=== PATIENT | female | born 1990 | race Hispanic/Latino ===

== ENCOUNTER 2017-12-14 03:55 | Inpatient (IN) | payer OTHER ==
--- NOTE | 2017-12-14 05:12 | ED PDOC ---
"HPI: Headache <Buster Elkins - Last Filed: 12/14/17 19:31> Chief Complaint (Provider): Headache History Per: Patient History/Exam Limitations: no limitations Onset/Duration Of Symptoms: Days (1), Persistent Additional Complaint(s): 27 yo F reports 4 day h/o constant pain to right occipital scalp radiating to the right side of her head. She states pain is persistent, unrelieved with PO advil, prompting concern and ED visit today, reports pain is worse when turning her head to the opposite direction. She denies experiencing any similar symptoms in the past. Otherwise: (-) thunderclap headache, (-) worse headache of life, (-) dizziness, (-) recent illness, (-) rash, (-) nausea, (-) vomiting, (-) photophobia, (-) URI symptoms, (-) fever, (-) trauma, (-) recent travel, (- ) focal weakness or numbness. <Natalie Malone PA-C - Last Filed: 12/14/17 20:48> Time Seen by Provider: 12/14/17 04:14 Chief Complaint (Nursing): Headache NIHSS Stroke Scale - Date/Time Evaluation Performed Date Performed: 12/14/17 Time Performed: 07:00 When Was NIHSS Performed: Baseline - How Severe is the Stroke Level of Consciousness: 0=Alert LOC to Questions: 0=Both comments correct LOC to commands: 0=Obeys both correctly Best Gaze: 0=Normal Visual: 0=No visual loss Facial: 0=Normal Motor Arm - Left: 0=No drift Motor Arm - Right: 0=No drift Motor Leg - Left: 0=No drift Motor Leg - Right: 0=No drift Limb Ataxia: 0=Absent Sensory: 0=Normal Best Language: 0=No aphasia Dysarthia: 0=Normal articulation Extinction & Inattention (Neglect): 0=Normal, no object Score: 0 <Buster Elkins - Last Filed: 12/14/17 19:31> Past Medical History Vital Signs: Last Vital Signs Temp 98.1 F 12/14/17 04:12 Pulse 74 12/14/17 04:12 Resp 16 12/14/17 04:12 BP 129/79 12/14/17 04:12 Pulse Ox 98 12/14/17 06:00 <Buster Elkins - Last Filed: 12/14/17 19:31> Reviewed: Historical Data, Nursing Documentation, Vital Signs Vital Signs: Last Vital Signs Temp 98.1 F 12/14/17 04:12 Pulse 74 12/14/17 04:12 Resp 16 12/14/17 04:12 BP 129/79 12/14/17 04:12 Pulse Ox 98 12/14/17 04:12 - Medical History PMH: No Chronic Diseases - Surgical History Surgical History: Tonsillectomy - Family History Family History: States: Unknown Family Hx - Social History Current smoker - smoking cessation education provided: No Alcohol: Social Drugs: Denies <Natalie Malone PA-C - Last Filed: 12/14/17 20:48> - Home Medications Home Medications: Ambulatory Orders Medication Instructions Recorded Norethindrone-E.estradiol-Iron 1 tab PO DAILY 12/14/17 [Microgestin Fe 1-20 Tablet] - Allergies Allergies/Adverse Reactions: Allergies Allergy/AdvReac Type Severity Reaction Status Date / Time No Known Allergies Allergy Verified 12/14/17 04:12 Review of Systems ROS Statement: Except As Marked, All Systems Reviewed And Found Negative Neurological: Positive for: Headache (Right sided), Other (Pain to right occipital scalp) <Natalie Malone PA-C - Last Filed: 12/14/17 20:48> Physical Exam - Physical Exam Comments: GENERAL APPEARANCE: Patient is awake, alert, oriented x 3, in mild distress. SKIN: Warm, dry; (-) cyanosis; (-) rash. HEAD: (-) scalp swelling or tenderness, (-) temporal artery tenderness. EYES: (-) conjunctival pallor, (-) scleral icterus. ENMT: (-) sinus tenderness; mucous membranes are moist. NECK: (-) tenderness, (-) stiffness, (-) meningismus, (-) lymphadenopathy. CHEST AND RESPIRATORY: (-) rales, (-) rhonchi, (-) wheezes; breath sounds equal bilaterally. HEART AND CARDIOVASCULAR: (-) irregularity; (-) murmur, (-) gallop. ABDOMEN AND GI: Soft; (-) tenderness. EXTREMITIES: (-) deformity. NEURO AND PSYCH: Mental status as above. data mining analyst: Pupils equal reactive; EOMI; (- ) facial asymmetry; tongue and uvula midline. Strength and DTRs symmetric. <Natalie Malone PA-C - Last Filed: 12/14/17 20:48> - Laboratory Results Result Diagrams: 12/14/17 07:08 12/14/17 07:08 <Buster Elkins - Last Filed: 12/14/17 19:31> - Laboratory Results Result Diagrams: 12/14/17 07:08 12/14/17 07:08 - ECG O2 Sat by Pulse Oximetry: 98 (RA) Pulse Ox Interpretation: Normal <Natalie Malone PA-C - Last Filed: 12/14/17 20:48> Medical Decision Making Medical Decision MakinAM Addendum created by Shanelle Su MD on 12/14/2017 6:44 AM Eastern Time ([place] & [place]) Critical results: THIS REPORT CONTAINS FINDINGS THAT MAY BE CRITICAL TO PATIENT CARE. The findings were verbally communicated via telephone conference with Dr. Elkins at 6:43 AM EDT on 12/14/2017. The findings were acknowledged and understood. Initial Report created on 12/14/2017 6:43 AM Eastern Time ([place] & [place]) EXAM: CT Head Without Intravenous Contrast CLINICAL HISTORY: The patient is a 27 years female; Pain; Headache Examination order is timed 12/14 5:03 AM. TECHNIQUE: Axial computed tomography images of the head/brain without intravenous contrast. All CT scans at this facility use at least one of these dose optimization techniques: automated exposure control; mA and/or kV adjustment per patient size (includes targeted exams where dose is matched to clinical indication); or iterative reconstruction. Coronal and Sagittal reformatted images were obtained from the axial data set. COMPARISON: No relevant prior studies available. FINDINGS: BRAIN: See below. VENTRICLES: Unremarkable as visualized. No ventriculomegaly. BONES/JOINTS: No acute fracture. SOFT TISSUES: Unremarkable as visualized. VASCULATURE: There is heterogeneous increased attenuation in the transverse sinus and likely proximal aspect of the sigmoid sinus which is very concerning for sinus thrombosis. There is no AGUSTINA [place] | Preliminary Radiology Report PARKING OFFICER (QA) DISCREPANCY? If there is a discrepancy between the preliminary and final interpretation, please notify [facility] via [email or web address]. If you do not have access to our QA portal, call our QA team at [phone] CONFIDENTIALITY STATEMENT This report is intended only for the use of the referring physician, and only in accordance with law, If you received this in error, call [phone] Page 2 of 2 evidence of intracranial hemorrhage. Comer-white differentiation is intact. There is no mass effect or midline shift. There is no extra-axial fluid collection or hemorrhage. SINUSES: Unremarkable as visualized. No acute sinusitis. MASTOID AIR CELLS: The mastoid IMPRESSION: Findings concerning for right-sided dural sinus thrombosis. Recommend CTV. Thank you for allowing us to participate in the care of your patient. Dictated and Authenticated by: Shanelle Su MD 12/14/2017 6:43 AM Eastern Time ([place] & [place]) Patient was re-evaluated at the bedside after the CT results came back, I informed patient of the results. I did a thorough neuro exam that was negative. NIH Stroke scale of 0. I spoke with DR. Cabrera who recommends MRA/MRV and Anticoagulation with plavix. Dr. Paulson was called and agrees with medical management, no NS intervention necessary. Case discussed with Dr. Campbell. <Buster Elkins - Last Filed: 12/14/17 19:31> Medical Decision Making: Time: 0503 Initial impression: Tension headache. Initital plan: --Uhcg --CT Head w/o Contrast --Reglan 10 mg Po Uhcg (-). 0600 CT head results pending, currently being read by the radiologist. Case d/w Dr. Elkins. Scribe Attestation: Documented by Tiera Younger, acting as a scribe for Natalie Malone PA-C. Provider Scribe Attestation: All medical record entries made by the Scribe were at my direction and personally dictated by me. I have reviewed the chart and agree that the record accurately reflects my personal performance of the history, physical exam, medical decision making, and the department course for this patient. I have also personally directed, reviewed, and agree with the discharge instructions and disposition. <Natalie Malone PA-C - Last Filed: 12/14/17 20:48> Disposition - Patient ED Disposition Is Patient to be Admitted: Yes Counseled Patient/Family Regarding: Studies Performed, Diagnosis - Disposition Disposition Time: 07:00 <Buster Elkins - Last Filed: 12/14/17 19:31> - Patient ED Disposition Is Patient to be Admitted: No Counseled Patient/Family Regarding: Studies Performed, Diagnosis, Need For Followup - Disposition Disposition: Routine/Home <Natalie Malone PA-C - Last Filed: 12/14/17 20:48> - Clinical Impression Clinical Impression: Dural venous sinus thrombosis - Disposition Condition: GUARDED - PA / STORAGE GARAGE ATTENDANT / Resident Statement / has reviewed & agrees with the documentation as recorded. / has examined the patient and agrees with the treatment plan. <Natalie Malone PA-C - Last Filed: 12/14/17 20:48>"
[2017-12-14 07:44] LABS: BASO % 0.6 % (0.0-2.0); EOS % 0.5 % (0.0-4.0); HEMOGLOBIN 13.3 g/dL (12.0-16.0); LYMPH # 2.3 K/uL (1.0-4.3); LYMPH % 30.5 % (20.0-40.0); MEAN CELL VOLUME 92.1 fl (81.0-99.0); MEAN CORPUSCULAR HGB CONC 33.6 g/dL (33.0-37.0); MEAN PLATELET VOLUME 7.7 fl (7.2-11.7); MONO # 0.7 K/uL (0.0-0.8); NEUT # 4.5 K/uL (1.8-7.0); NEUT % 59.4 % (50.0-75.0); NRBC % 0.1 % (0.0-0.0); RBC 4.3 Mil/uL (3.80-5.20); RED CELL DISTRIBUTION WIDTH 13.3 % (11.5-14.5); WHITE BLOOD COUNT 7.5 K/uL (4.8-10.8)
[2017-12-14 07:48] LABS: SQUAMOUS EPITHIAL 2 /hpf (0-5); URINE BACTERIA OCC (<OCC); URINE BILIRUBIN NEGATIVE (NEGATIVE); URINE BLOOD NEGATIVE (NEGATIVE); URINE CLARITY SLIGHTY-CLOUDY (Clear); URINE COLOR YELLOW (YELLOW); URINE GLUCOSE (UA) NEG (Normal); URINE LEUKOCYTE ESTERASE NEG Leu/uL (Negative); URINE PROTEIN NEGATIVE (NEGATIVE); URINE UROBILINOGEN 0.2-1.0 mg/dL (0.2-1.0)
[2017-12-14] MEDS ORDERED: Sodium Chloride 0.9% 50 ML IV ONE (07:54)
[2017-12-14] MEDS ORDERED: Iohexol 300 100 ML IJ ONE (07:54)
[2017-12-14 07:57] LABS: INR 0.9 (0.9-1.2); PARTIAL THROMBOPLASTIN TIME 27.4 Seconds (25.6-37.1); PROTHROMBIN TIME 9.8 Seconds (9.8-13.1)
[2017-12-14 07:58] LABS: BLOOD UREA NITROGEN 15 mg/dl (7-17); CALCIUM 9.8 mg/dL (8.4-10.2); GFR AFRICAN-AMERICAN > 60; GFR NON-AFRICAN AMERICAN > 60
[2017-12-14] MEDS ORDERED: Oxycodone/Acetaminophen 5/325 mg Tab PO PRN (08:21)
[2017-12-14] MEDS ORDERED: Oxycodone/Acetaminophen 5/325 mg Tab ONE (08:35)
[2017-12-14] MEDS: Oxycodone/Acetaminophen 5/325 mg Tab PO PRN (08:45)
--- NOTE | 2017-12-14 08:52 | CP.PCM.HP ---
History of Present Illness - History of Present Illness History of Present Illness: Patient seen and examined at bedside with Dr. Campbell. 27 yr old F presented to ED with complaint of constant severe headache x 4 days. Denies any significant PMHx. Pain is located on the right side of her head from occipital area radiating temporal area. Pain is exacerbated by turning her head towards the left. Pain is not alleviated by anything, she tried Advil. Denies nausea, vomiting, fevers, chills, SOB, photophobia, one sided weakness or numbness, dysuria or hematuria. PMHx: denies SurgHx: tonsillectomy FMHx:noncontributory SocHx: denies tobacco/Etoh or drugs Medications: Norethindron-estradiol Allergies: NKDA ED course: vitals stable -CBC, coags, CMP and urinalysis within normal limits -CT head without contrast: findings concerning for right sided dural sinus thrombosis. Recommend CTV -MRA head with contrast and MRV head without contrast ordered -ED treatment: Plavix 300mg PO once, Reglan 10mg PO once Present on Admission - Present on Admission Any Indicators Present on Admission: No History of DVT/PE: No History of Uncontrolled Diabetes: No Urinary Catheter: No Decubitus Ulcer Present: No History Surgical Site Infection Following: None Review of Systems - EENT Eyes: absent: Change in Vision Ears: absent: Disequilibrium, Dizziness Nose/Mouth/Throat: absent: Sinus Pain, Sinus Pressure, Sore Throat - Cardiovascular Cardiovascular: absent: Chest Pain, Dyspnea - Respiratory Respiratory: absent: Cough, Dyspnea, Hemoptysis - Gastrointestinal Gastrointestinal: absent: Diarrhea, Nausea, Vomiting - Genitourinary Genitourinary: absent: Difficulty Urinating, Dysuria - Musculoskeletal Musculoskeletal: absent: Arthralgias, Neck Pain - Neurological Neurological: Headaches (constant-right sided). absent: Confusion, Dizziness, Focal Weakness - Psychiatric Psychiatric: absent: Anxiety, Suicidal Ideation - Endocrine Endocrine: absent: Polydipsia, Polyphagia, Polyuria - Hematologic/Lymphatic Hematologic: absent: Easy Bleeding, Easy Bruising Past Patient History - Past Social History Alcohol: Social Drugs: Denies - PSYCHIATRIC Hx Substance Use: No - SURGICAL HISTORY Hx Tonsillectomy: Yes Meds Allergies/Adverse Reactions: Allergies Allergy/AdvReac Type Severity Reaction Status Date / Time No Known Allergies Allergy Verified 12/14/17 04:12 Physical Exam - Constitutional Appears: No Acute Distress - Head Exam Head Exam: ATRAUMATIC, NORMOCEPHALIC - Eye Exam Eye Exam: EOMI, PERRL - ENT Exam ENT Exam: Mucous Membranes Moist - Neck Exam Neck exam: Positive for: Full Rom. Negative for: Lymphadenopathy, Meningismus, Tenderness - Respiratory Exam Respiratory Exam: Clear to Auscultation Bilateral, NORMAL BREATHING PATTERN - Cardiovascular Exam Cardiovascular Exam: REGULAR RHYTHM, +S1, +S2 - GI/Abdominal Exam GI & Abdominal Exam: Normal Bowel Sounds, Soft. absent: Tenderness - Extremities Exam Extremities exam: Positive for: full ROM. Negative for: calf tenderness, joint swelling, pedal edema - Neurological Exam Neurological exam: Alert, CN II-XII Intact, Oriented x3 - Psychiatric Exam Psychiatric exam: Normal Affect, Normal Mood - Skin Skin Exam: Dry, Normal Color, Warm Results - Vital Signs Recent Vital Signs: Last Vital Signs Temp 98.1 F 12/14/17 04:12 Pulse 74 12/14/17 07:14 Resp 16 12/14/17 07:14 BP 122/78 12/14/17 07:14 Pulse Ox 100 12/14/17 07:14 - Labs Result Diagrams: 12/14/17 07:08 12/14/17 07:08 Labs: Laboratory Results - last 24 hr 12/14/17 12/14/17 12/14/17 07:02 07:08 07:08 WBC 7.5 RBC 4.30 Hgb 13.3 Hct 39.6 MCV 92.1 MCH 31.0 MCHC 33.6 RDW 13.3 Plt Count 303 MPV 7.7 Neut % (Auto) 59.4 Lymph % (Auto) 30.5 [place] % (Auto) 9.0 Eos % (Auto) 0.5 Baso % (Auto) 0.6 Neut # (Auto) 4.5 Lymph # (Auto) 2.3 [place] # (Auto) 0.7 Eos # (Auto) 0.0 Baso # (Auto) 0.0 PT INR APTT Sodium 141 Potassium 4.4 Chloride 105 Carbon Dioxide 27 Anion Gap 13 BUN 15 Creatinine 0.6 L Est GFR ( Amer) > 60 Est GFR (Non-Af Amer) > 60 POC Glucose (mg/dL) 99 Random Glucose 99 Calcium 9.8 Urine Color Urine Clarity Urine pH Ur Specific [place] Urine Protein Urine Glucose (UA) Urine Ketones Urine Blood Urine Nitrate Urine Bilirubin Urine Urobilinogen Ur Leukocyte Esterase Urine RBC (Auto) Urine Microscopic WBC Ur Squamous Epith Cells Urine Bacteria BBK History Checked 12/14/17 12/14/17 12/14/17 07:08 07:09 08:00 WBC RBC Hgb Hct MCV MCH MCHC RDW Plt Count MPV Neut % (Auto) Lymph % (Auto) [place] % (Auto) Eos % (Auto) Baso % (Auto) Neut # (Auto) Lymph # (Auto) [place] # (Auto) Eos # (Auto) Baso # (Auto) PT 9.8 INR 0.9 APTT 27.4 Sodium Potassium Chloride Carbon Dioxide Anion Gap BUN Creatinine Est GFR ( Amer) Est GFR (Non-Af Amer) POC Glucose (mg/dL) Random Glucose Calcium Urine Color Yellow Urine Clarity Slighty-cloudy Urine pH 5.0 Ur Specific [place] 1.018 Urine Protein Negative Urine Glucose (UA) Neg Urine Ketones Negative Urine Blood Negative Urine Nitrate Negative Urine Bilirubin Negative Urine Urobilinogen 0.2-1.0 Ur Leukocyte Esterase Neg Urine RBC (Auto) 8 H Urine Microscopic WBC 3 Ur Squamous Epith Cells 2 Urine Bacteria Occ H BBK History Checked No verified bt Assessment & Plan - Assessment and Plan (Free Text) Assessment: 27 yr old F admitted for right sided dural sinus thrombosis. No other significant PMHx. Plan: -admit to telemetry -hold oral contraceptive medication -Neurology consult appreciated -regular diet -f/u hypercoagulable labs (antiphospholipid ab, antithrombin activity, factor V leiden, protein C activity, protein S activity, prothrombin gene) -pain management - Date & Time Date: 12/14/17 Time: 07:45
--- NOTE | 2017-12-14 09:04 | CT ---
PROCEDURE: CT HEAD WITHOUT CONTRAST. HISTORY: headache COMPARISON: None available. TECHNIQUE: Axial computed tomography images were obtained through the head/brain without intravenous contrast. Radiation dose: Total exam DLP = 851.41 mGy-cm. This CT exam was performed using one or more of the following dose reduction techniques: Automated exposure control, adjustment of the mA and/or kV according to patient size, and/or use of iterative reconstruction technique. FINDINGS: HEMORRHAGE: No intracranial hemorrhage. BRAIN: Increased hyper densities appreciated the region of the right transverse sinus suspicious for thrombosis. Consider follow-up CT of the brain with contrast. Remaining sinuses are normal in overall density. Good corticomedullary differentiation remains and no parenchymal edema is appreciated this time to suggest brain infarction. There is no mass effect or suspicious extra-axial fluid collection identified. Midline brain anatomy appears diffusely unremarkable. VENTRICLES: Unremarkable. No hydrocephalus. CALVARIUM: Unremarkable. PARANASAL SINUSES: Unremarkable as visualized. No significant inflammatory changes. MASTOID AIR CELLS: Unremarkable as visualized. No inflammatory changes. OTHER FINDINGS: None. IMPRESSION: Findings suspicious for right transverse sinus thrombosis as discussed above. Follow-up CT or MRI with contrast is advised. No CT evidence of acute or subacute brain infarction though MRI is more sensitive and should be considered. Concordant preliminary report from [facility], 12/14/2017.
--- NOTE | 2017-12-14 09:11 | CT ---
PROCEDURE: CT HEAD WITH CONTRAST HISTORY: thrombosis in dural sinus COMPARISON: Noncontrast head CT 12/14/2017 5:13 a.m.. TECHNIQUE: Axial computed tomography images were obtained through the head/brain with intravenous contrast. Contrast dose: Omnipaque 300, 40 cc Radiation dose: Total exam DLP = 901.02 mGy-cm. This CT exam was performed using one or more of the following dose reduction techniques: Automated exposure control, adjustment of the mA and/or kV according to patient size, and/or use of iterative reconstruction technique. FINDINGS: HEMORRHAGE: No intracranial hemorrhage. BRAIN: There is poor enhancement at the right transverse sinus extending into the sigmoid sinus compatible with dural sinus thrombosis, including the proximal right internal jugular vein. Remaining venous sinuses appear to enhance in normal fashion including superior inferior sagittal sinuses, left transverse and sigmoid sinuses as well as the straight sinus and vein of Jose M. Internal cerebral veins also enhance in a normal fashion. No suspicious parenchymal enhancement throughout the brain. VENTRICLES: Unremarkable. No hydrocephalus. CALVARIUM: Unremarkable. PARANASAL SINUSES: Unremarkable as visualized. No significant inflammatory changes. MASTOID AIR CELLS: Unremarkable as visualized. No mastoid effusion. OTHER FINDINGS: None. IMPRESSION: Findings positive for dural sinus thrombosis involving right transverse and sigmoid sinuses and proximal segment of the right internal jugular vein as well. No overt CT pattern of brain infarction at this time. MRI may be useful for confirmation if clinically warranted. No abnormal parenchymal enhancement throughout the brain. Findings discussed with Dr. Rocha with written down and read back verification, 12/14/2017 9:10 a.m..
--- NOTE | 2017-12-14 11:02 | MRI ---
PROCEDURE: Magnetic Resonance Angiography Brain HISTORY: intractable headache COMPARISON: None available. TECHNIQUE: 3D time of flight MR angiography of the intracranial arteries was performed. Rotating maximum intensity projection images were generated. FINDINGS: INTERNAL CAROTID ARTERIES: Unremarkable. The skull base, petrous, cavernous and supraclinoid segments are bilaterally widely patient. ANTERIOR CEREBRAL ARTERIES: Mildly hypoplastic but patent right A1 segment. Left A1 and A2 segments are widely patent. Smaller distal branches unremarkable, as visualized. MIDDLE CEREBRAL ARTERIES: Unremarkable. M1 and M2 segments are widely patent. Perisylvian branches grossly symmetric. POSTERIOR CIRCULATION: Basilar Artery: Unremarkable. Distal Vertebral Arteries: Mildly hypoplastic but patent distal left vertebral artery. Unremarkable right vertebral artery Posterior Cerebral Arteries: Unremarkable. Posterior Inferior Cerebellar Arteries: Unremarkable. ANEURYSM/ VASCULAR MALFORMATIONS: None. OTHER FINDINGS: None. IMPRESSION: No significant stenosis and no occlusion is seen in MR angiography of the brain. A couple of hypoplastic branches are identified as discussed above at the right A1 anterior cerebral and left distal vertebral arteries.
--- NOTE | 2017-12-14 11:12 | MRI ---
PROCEDURE: MR Venography of the Brain HISTORY: intractable headache COMPARISON: Head CT with contrast 12/14/2017. TECHNIQUE: 2D time of flight venography of the brain was performed. Rotating MIP images of the intracranial veins were generated. FINDINGS: SUPERFICIAL VEINS: Superior Sagittal Sinus: Patent. Inferior Sagittal Sinus:None seen, nonspecific sign as it is frequently not identified in MR venography. Transverse Sinuses: No signal identified at the right transverse or sigmoid sinuses suggesting occlusion. Sigmoid Sinuses:As above. DEEP VEINS: Internal Cerebral Veins: Patent. Vein of Jose M: Patent. Straight Sinus: Patent. IMPRESSION: Occlusional thrombosis right transverse and sigmoid sinuses as discussed above. Findings agree with CT of the head with contrast 12/14/2017.
--- NOTE | 2017-12-14 17:42 | CP.PCM.CON ---
History of Present Illness - History of Present Illness History of Present Illness: 27 yr old right handed woman who was well until about 3 days ago when she started to have a 9/10 headache in the posterior head region, occipital lobe. She had not vomiting, diplopia, weakness, dysarthria or aphasia. After waiting several days for headache to improve, she came to the Er last night with unremitting headache. CT scan head shows cavernous sinus thrombosis , and MRV and MRA was ordered and it showed the same. Patient states that [place] the [place] and was very dehydrated. PMH/PSH: none. 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 Has boyfriend. All: nkda. on exam: Normal neurological examination. There were no cranial nerve abnormalities. no weakness. no dysarthria or aphasia. gait normal. Past Patient History - Past Medical History & Family History Past Medical History?: Yes - Past Social History Smoking Status: Never Smoked - CARDIAC Hx Cardiac Disorders: No - PULMONARY Hx Respiratory Disorders: No - NEUROLOGICAL Hx Neurological Disorder: No - HEENT Hx HEENT Problems: No - RENAL Hx Chronic Kidney Disease: No - ENDOCRINE/METABOLIC Hx Endocrine Disorders: No - HEMATOLOGICAL/ONCOLOGICAL Hx Blood Disorders: No Hx AIDS: No Hx Human Immunodeficiency Virus (HIV): No - INTEGUMENTARY Hx Dermatological Problems: No - MUSCULOSKELETAL/RHEUMATOLOGICAL Hx Musculoskeletal Disorders: No Hx Falls: No - GASTROINTESTINAL Hx Gastrointestinal Disorders: No - GENITOURINARY/GYNECOLOGICAL Hx Genitourinary Disorders: No - PSYCHIATRIC Hx Psychophysiologic Disorder: No Hx Substance Use: No - SURGICAL HISTORY Hx Surgeries: Yes Hx Tonsillectomy: Yes - ANESTHESIA Hx Anesthesia: Yes Hx Anesthesia Reactions: No Hx Malignant Hyperthermia: No Has any member of the family had a problem w/ anesthesia?: No Meds Allergies/Adverse Reactions: Allergies Allergy/AdvReac Type Severity Reaction Status Date / Time No Known Allergies Allergy Verified 12/14/17 04:12 - Medications Medications: Current Medications Heparin Sodium/Dextrose (Heparin 25,000 Units/250ml In D5w) 25,000 units in 250 mls @ 15 mls/hr IV .[id number] MATT PRN Reason: Protocol Oxycodone/Acetaminophen (Percocet 5/325 Mg Tab) 1 tab PO Q4 PRN PRN Reason: Pain, moderate (4-7) Stop: 12/17/17 08:21 Last Admin: 12/14/17 08:45 Dose: 1 tab Oxycodone/Acetaminophen (Percocet 5/325 Mg Tab) 2 tab PO Q6 PRN PRN Reason: Pain, severe (8-10) Stop: 12/17/17 08:22 Last Admin: 12/14/17 14:59 Dose: 2 tab Results - Vital Signs Recent Vital Signs: Last Vital Signs Temp 97.6 F 12/14/17 16:32 Pulse 67 12/14/17 16:32 Resp 16 12/14/17 16:32 BP 117/72 12/14/17 16:32 Pulse Ox 98 12/14/17 16:32 - Labs Result Diagrams: 12/14/17 07:08 12/14/17 07:08 Labs: Laboratory Results - last 24 hr 12/14/17 12/14/17 12/14/17 07:02 07:08 07:08 WBC 7.5 RBC 4.30 Hgb 13.3 Hct 39.6 MCV 92.1 MCH 31.0 MCHC 33.6 RDW 13.3 Plt Count 303 MPV 7.7 Neut % (Auto) 59.4 Lymph % (Auto) 30.5 [place] % (Auto) 9.0 Eos % (Auto) 0.5 Baso % (Auto) 0.6 Neut # (Auto) 4.5 Lymph # (Auto) 2.3 [place] # (Auto) 0.7 Eos # (Auto) 0.0 Baso # (Auto) 0.0 PT INR APTT Sodium 141 Potassium 4.4 Chloride 105 Carbon Dioxide 27 Anion Gap 13 BUN 15 Creatinine 0.6 L Est GFR ( Amer) > 60 Est GFR (Non-Af Amer) > 60 POC Glucose (mg/dL) 99 Random Glucose 99 Calcium 9.8 Urine Color Urine Clarity Urine pH Ur Specific [place] Urine Protein Urine Glucose (UA) Urine Ketones Urine Blood Urine Nitrate Urine Bilirubin Urine Urobilinogen Ur Leukocyte Esterase Urine RBC (Auto) Urine Microscopic WBC Ur Squamous Epith Cells Urine Bacteria Blood Type Blood Type Confirm Antibody Screen BBK History Checked 12/14/17 12/14/17 12/14/17 07:08 07:09 08:00 WBC RBC Hgb Hct MCV MCH MCHC RDW Plt Count MPV Neut % (Auto) Lymph % (Auto) [place] % (Auto) Eos % (Auto) Baso % (Auto) Neut # (Auto) Lymph # (Auto) [place] # (Auto) Eos # (Auto) Baso # (Auto) PT 9.8 INR 0.9 APTT 27.4 Sodium Potassium Chloride Carbon Dioxide Anion Gap BUN Creatinine Est GFR ( Amer) Est GFR (Non-Af Amer) POC Glucose (mg/dL) Random Glucose Calcium Urine Color Yellow Urine Clarity Slighty-cloudy Urine pH 5.0 Ur Specific [place] 1.018 Urine Protein Negative Urine Glucose (UA) Neg Urine Ketones Negative Urine Blood Negative Urine Nitrate Negative Urine Bilirubin Negative Urine Urobilinogen 0.2-1.0 Ur Leukocyte Esterase Neg Urine RBC (Auto) 8 H Urine Microscopic WBC 3 Ur Squamous Epith Cells 2 Urine Bacteria Occ H Blood Type O POSITIVE Blood Type Confirm Antibody Screen Negative BBK History Checked No verified bt 12/14/17 08:10 WBC RBC Hgb Hct MCV MCH MCHC RDW Plt Count MPV Neut % (Auto) Lymph % (Auto) [place] % (Auto) Eos % (Auto) Baso % (Auto) Neut # (Auto) Lymph # (Auto) [place] # (Auto) Eos # (Auto) Baso # (Auto) PT INR APTT Sodium Potassium Chloride Carbon Dioxide Anion Gap BUN Creatinine Est GFR ( Amer) Est GFR (Non-Af Amer) POC Glucose (mg/dL) Random Glucose Calcium Urine Color Urine Clarity Urine pH Ur Specific [place] Urine Protein Urine Glucose (UA) Urine Ketones Urine Blood Urine Nitrate Urine Bilirubin Urine Urobilinogen Ur Leukocyte Esterase Urine RBC (Auto) Urine Microscopic WBC Ur Squamous Epith Cells Urine Bacteria Blood Type Blood Type Confirm O POSITIVE Antibody Screen BBK History Checked Assessment & Plan - Assessment and Plan (Free Text) Assessment: MRV MRA: head: shows dural sinus thrombosis in the right transverse and sigmoid sinus thrombosis. CT head: as above. A/P: 27 yr old woman with dural sinus thrombosis, no prior history noted, but has OCP use. I feel that she may have an underlying hypercoagulable disorder, and will send the panel. plan; 1. Transfer to ICU. 2. Start heparin for PE protocol. 3. repeat CT head on Sunday. 4. check pt ptt per protocol. thank you Dr. vuong
--- NOTE | 2017-12-14 17:45 | CP.CCUPN ---
CCU Subjective - Physician Review Subjective (Free Text): TRANSFER to ICU from N Tele: 27F admitted with headache over 4 days and found to have a dural sinus thrombosis, no significant prior PMH, but has been on OCs. Presently awake, alert, just given Percocet for headache, no other symptoms nor complaints. And no focal neurologic deficits. Awaiting initiation of IV AC with Heparin. ROS: no other pertinent negs or positives on 10+ system review. Vitals: Other vitals reviewed. PMH: none Allergies: NKDA Home Meds: Norethindrone-Estradiol PMSFH: All other Nursing and physician documentation reviewed to date; no new pertinent info noted relevant to current medical problems. EXAM- HEENT: no icterus, pupils equal and reactive, no gaze preference. NECK: No JVD, supple, carotids equal upstroke bilat/no bruits CHEST: clear BS bilat, no wheezes audible. HEART: regular, S1S2, no rubs or murmurs ABD: soft, no distention, no tympany, no palp tenderness, BS hypoactive EXT: There is no edema. No peripheral/ digital cyanosis, no calf tenderness or palpable cords, distal pulses intact and symmetrical NEURO: non-focal, sensory intact SKIN: no rashes, warm and dry. LABS: Coags: normal WBC= 7.5 HGB= 13.3 PLTs= 303K Au=139 K= 4.4 CL= 105 HCO3= 27 BUN/Cr= 15/0.6 BS= 99 IMPRESSION / MAJOR PROBLEMS NOW: 1. 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 OC use 3. r/o Hypercoagulable State PLAN: 1. No s/s of HEENT source of infection. 2. Heparin drip as per Neurology 3. Neurochecks Q2 4. Repeat brain imaging In AM.
[2017-12-14] MEDS ORDERED: Heparin25000 units/250ml 1/2NS 25,000 UNITS/250 ML BAG IV ONE (18:10)
[2017-12-14] MEDS: Heparin 25,000units in D5W 25,000 UNITS/250 ML BAG IV SCH (18:19)
[2017-12-15 06:39] LABS: HEMOGLOBIN 12.6 g/dL (12.0-16.0); MEAN CELL VOLUME 91.3 fl (81.0-99.0); MEAN CORPUSCULAR HEMOGLOBIN 31.5 pg (27.0-31.0); MEAN CORPUSCULAR HGB CONC 34.5 g/dL (33.0-37.0); RBC 3.98 Mil/uL (3.80-5.20); RED CELL DISTRIBUTION WIDTH 13.1 % (11.5-14.5); WHITE BLOOD COUNT 6.2 K/uL (4.8-10.8)
[2017-12-15 06:56] LABS: ALB/GLOB RATIO 1.1 (1.0-2.1); ALBUMIN 3.5 g/dL (3.5-5.0); ALT/SGPT 19 U/L (9-52); AST/SGOT 16 U/L (14-36); BLOOD UREA NITROGEN 9 mg/dl (7-17); CALCIUM 8.7 mg/dL (8.4-10.2); GFR AFRICAN-AMERICAN > 60; GFR NON-AFRICAN AMERICAN > 60
--- NOTE | 2017-12-15 07:37 | CP.CCUPN ---
CCU Subjective - Physician Review Events Since Last Encounter (Free Text): 12/15/17 07:34 On heparin GGT No headache now alert and oriented CCU Objective - Vital Signs / Intake & Output Vital Signs (Last 4 hours): Vital Signs Temp Pulse Resp BP Pulse Ox 12/15/17 06:00 98.2 F 71 15 110/71 96 12/15/17 04:00 49 L 15 105/58 L 98 Intake and Output (Last 8hrs): Intake & Output 12/14/17 12/15/17 12/15/17 22:59 06:59 14:59 Intake Total 45 105 Balance 45 105 Intake: IV 45 105 Other: # Voids Urine, Voided 1 - Physical Exam Narrative Physical Exam (Free Text): 12/15/17 07:35 P/E neck: No JVD Lungs : No ronchi crackles Abdomen: soft, non-tender Ext: No edema Heart: No gallop - Medications Active Medications: Active Medications Generic Name Dose Route Start Last Admin Trade Name Freq PRN Reason Stop Dose Admin Heparin Sodium/Dextrose 25,000 units in 250 mls @ 15 mls/hr 12/14/17 17:15 18:19 Heparin 25,000 Units/250ml In D5w IV 15 mls/hr .[id number] MATT Administration Protocol Oxycodone/Acetaminophen 1 tab 12/14/17 08:20 12/14/17 08:45 Percocet 5/325 Mg Tab PO 12/17/17 08:21 1 tab Q4 PRN Administration Pain, moderate (4-7) Oxycodone/Acetaminophen 2 tab 12/14/17 08:21 12/14/17 14:59 Percocet 5/325 Mg Tab PO 12/17/17 08:22 2 tab Q6 PRN Administration Pain, severe (8-10) - Patient Studies Lab Studies: Lab Studies 12/15/17 12/15/17 12/15/17 Range/Units 06:30 06:30 06:30 WBC 6.2 (4.8-10.8) K/uL RBC 3.98 (3.80-5.20) Mil/uL Hgb 12.6 (12.0-16.0) g/dL Hct 36.4 (34.0-47.0) % MCV 91.3 (81.0-99.0) fl MCH 31.5 H (27.0-31.0) pg MCHC 34.5 (33.0-37.0) g/dL RDW 13.1 (11.5-14.5) % Plt Count 241 (130-400) K/uL MPV (7.2-11.7) fl Neut % (Auto) (50.0-75.0) % Lymph % (Auto) (20.0-40.0) % [place] % (Auto) (0.0-10.0) % Eos % (Auto) (0.0-4.0) % Baso % (Auto) (0.0-2.0) % Neut # (Auto) (1.8-7.0) K/uL Lymph # (Auto) (1.0-4.3) K/uL [place] # (Auto) (0.0-0.8) K/uL Eos # (Auto) (0.0-0.7) K/uL Baso # (Auto) (0.0-0.2) K/uL PT (9.8-13.1) Seconds INR (0.9-1.2) APTT 70.3 H (25.6-37.1) Seconds Sodium 139 (132-148) mmol/l Potassium 4.2 (3.6-5.0) MMOL/L Chloride 108 H (98-107) mmol/L Carbon Dioxide 26 (22-30) mmol/L Anion Gap 9 L (10-20) BUN 9 (7-17) mg/dl Creatinine 0.6 L (0.7-1.2) mg/dl Est GFR ( Amer) > 60 Est GFR (Non-Af Amer) > 60 Random Glucose 97 (65-105) mg/dL Calcium 8.7 (8.4-10.2) mg/dL Total Bilirubin 0.7 (0.2-1.3) mg/dl AST 16 (14-36) U/L ALT 19 (9-52) U/L Alkaline Phosphatase 47 (38-126) U/L Total Protein 6.7 (6.3-8.2) G/DL Albumin 3.5 (3.5-5.0) g/dL Globulin 3.2 (2.2-3.9) gm/dL Albumin/Globulin Ratio 1.1 (1.0-2.1) Urine Color (YELLOW) Urine Clarity (Clear) Urine pH (5.0-8.0) Ur Specific [address] (1.003-1.030) Urine Protein (NEGATIVE) mg/dL Urine Glucose (UA) (Normal) mg/dL Urine Ketones (NEGATIVE) mg/dL Urine Blood (NEGATIVE) Urine Nitrate (NEGATIVE) Urine Bilirubin (NEGATIVE) Urine Urobilinogen (0.2-1.0) mg/dL Ur Leukocyte Esterase (Negative) Julio/uL Urine RBC (Auto) (0-3) /hpf Urine Microscopic WBC (0-5) /hpf Ur Squamous Epith Cells (0-5) /hpf Urine Bacteria (<OCC) Blood Type Blood Type Confirm Antibody Screen BBK History Checked 12/14/17 12/14/17 12/14/17 Range/Units 23:45 08:10 08:00 WBC (4.8-10.8) K/uL RBC (3.80-5.20) Mil/uL Hgb (12.0-16.0) g/dL Hct (34.0-47.0) % MCV (81.0-99.0) fl MCH (27.0-31.0) pg MCHC (33.0-37.0) g/dL RDW (11.5-14.5) % Plt Count (130-400) K/uL MPV (7.2-11.7) fl Neut % (Auto) (50.0-75.0) % Lymph % (Auto) (20.0-40.0) % [place] % (Auto) (0.0-10.0) % Eos % (Auto) (0.0-4.0) % Baso % (Auto) (0.0-2.0) % Neut # (Auto) (1.8-7.0) K/uL Lymph # (Auto) (1.0-4.3) K/uL [place] # (Auto) (0.0-0.8) K/uL Eos # (Auto) (0.0-0.7) K/uL Baso # (Auto) (0.0-0.2) K/uL PT (9.8-13.1) Seconds INR (0.9-1.2) APTT 72.2 H D (25.6-37.1) Seconds Sodium (132-148) mmol/l Potassium (3.6-5.0) MMOL/L Chloride (98-107) mmol/L Carbon Dioxide (22-30) mmol/L Anion Gap (10-20) BUN (7-17) mg/dl Creatinine (0.7-1.2) mg/dl Est GFR ( Amer) Est GFR (Non-Af Amer) Random Glucose (65-105) mg/dL Calcium (8.4-10.2) mg/dL Total Bilirubin (0.2-1.3) mg/dl AST (14-36) U/L ALT (9-52) U/L Alkaline Phosphatase (38-126) U/L Total Protein (6.3-8.2) G/DL Albumin (3.5-5.0) g/dL Globulin (2.2-3.9) gm/dL Albumin/Globulin Ratio (1.0-2.1) Urine Color (YELLOW) Urine Clarity (Clear) Urine pH (5.0-8.0) Ur Specific [address] (1.003-1.030) Urine Protein (NEGATIVE) mg/dL Urine Glucose (UA) (Normal) mg/dL Urine Ketones (NEGATIVE) mg/dL Urine Blood (NEGATIVE) Urine Nitrate (NEGATIVE) Urine Bilirubin (NEGATIVE) Urine Urobilinogen (0.2-1.0) mg/dL Ur Leukocyte Esterase (Negative) Julio/uL Urine RBC (Auto) (0-3) /hpf Urine Microscopic WBC (0-5) /hpf Ur Squamous Epith Cells (0-5) /hpf Urine Bacteria (<OCC) Blood Type O POSITIVE Blood Type Confirm O POSITIVE Antibody Screen Negative BBK History Checked No verified bt 12/14/17 12/14/17 12/14/17 Range/Units 07:09 07:08 07:08 WBC 7.5 (4.8-10.8) K/uL RBC 4.30 (3.80-5.20) Mil/uL Hgb 13.3 (12.0-16.0) g/dL Hct 39.6 (34.0-47.0) % MCV 92.1 (81.0-99.0) fl MCH 31.0 (27.0-31.0) pg MCHC 33.6 (33.0-37.0) g/dL RDW 13.3 (11.5-14.5) % Plt Count 303 (130-400) K/uL MPV 7.7 (7.2-11.7) fl Neut % (Auto) 59.4 (50.0-75.0) % Lymph % (Auto) 30.5 (20.0-40.0) % [place] % (Auto) 9.0 (0.0-10.0) % Eos % (Auto) 0.5 (0.0-4.0) % Baso % (Auto) 0.6 (0.0-2.0) % Neut # (Auto) 4.5 (1.8-7.0) K/uL Lymph # (Auto) 2.3 (1.0-4.3) K/uL [place] # (Auto) 0.7 (0.0-0.8) K/uL Eos # (Auto) 0.0 (0.0-0.7) K/uL Baso # (Auto) 0.0 (0.0-0.2) K/uL PT 9.8 (9.8-13.1) Seconds INR 0.9 (0.9-1.2) APTT 27.4 (25.6-37.1) Seconds Sodium (132-148) mmol/l Potassium (3.6-5.0) MMOL/L Chloride (98-107) mmol/L Carbon Dioxide (22-30) mmol/L Anion Gap (10-20) BUN (7-17) mg/dl Creatinine (0.7-1.2) mg/dl Est GFR ( Amer) Est GFR (Non-Af Amer) Random Glucose (65-105) mg/dL Calcium (8.4-10.2) mg/dL Total Bilirubin (0.2-1.3) mg/dl AST (14-36) U/L ALT (9-52) U/L Alkaline Phosphatase (38-126) U/L Total Protein (6.3-8.2) G/DL Albumin (3.5-5.0) g/dL Globulin (2.2-3.9) gm/dL Albumin/Globulin Ratio (1.0-2.1) Urine Color Yellow (YELLOW) Urine Clarity Slighty-cloudy (Clear) Urine pH 5.0 (5.0-8.0) Ur Specific [address] 1.018 (1.003-1.030) Urine Protein Negative (NEGATIVE) mg/dL Urine Glucose (UA) Neg (Normal) mg/dL Urine Ketones Negative (NEGATIVE) mg/dL Urine Blood Negative (NEGATIVE) Urine Nitrate Negative (NEGATIVE) Urine Bilirubin Negative (NEGATIVE) Urine Urobilinogen 0.2-1.0 (0.2-1.0) mg/dL Ur Leukocyte Esterase Neg (Negative) Julio/uL Urine RBC (Auto) 8 H (0-3) /hpf Urine Microscopic WBC 3 (0-5) /hpf Ur Squamous Epith Cells 2 (0-5) /hpf Urine Bacteria Occ H (<OCC) Blood Type Blood Type Confirm Antibody Screen BBK History Checked 12/14/17 Range/Units 07:08 WBC (4.8-10.8) K/uL RBC (3.80-5.20) Mil/uL Hgb (12.0-16.0) g/dL Hct (34.0-47.0) % MCV (81.0-99.0) fl MCH (27.0-31.0) pg MCHC (33.0-37.0) g/dL RDW (11.5-14.5) % Plt Count (130-400) K/uL MPV (7.2-11.7) fl Neut % (Auto) (50.0-75.0) % Lymph % (Auto) (20.0-40.0) % [place] % (Auto) (0.0-10.0) % Eos % (Auto) (0.0-4.0) % Baso % (Auto) (0.0-2.0) % Neut # (Auto) (1.8-7.0) K/uL Lymph # (Auto) (1.0-4.3) K/uL [place] # (Auto) (0.0-0.8) K/uL Eos # (Auto) (0.0-0.7) K/uL Baso # (Auto) (0.0-0.2) K/uL PT (9.8-13.1) Seconds INR (0.9-1.2) APTT (25.6-37.1) Seconds Sodium 141 (132-148) mmol/l Potassium 4.4 (3.6-5.0) MMOL/L Chloride 105 (98-107) mmol/L Carbon Dioxide 27 (22-30) mmol/L Anion Gap 13 (10-20) BUN 15 (7-17) mg/dl Creatinine 0.6 L (0.7-1.2) mg/dl Est GFR ( Amer) > 60 Est GFR (Non-Af Amer) > 60 Random Glucose 99 (65-105) mg/dL Calcium 9.8 (8.4-10.2) mg/dL Total Bilirubin (0.2-1.3) mg/dl AST (14-36) U/L ALT (9-52) U/L Alkaline Phosphatase (38-126) U/L Total Protein (6.3-8.2) G/DL Albumin (3.5-5.0) g/dL Globulin (2.2-3.9) gm/dL Albumin/Globulin Ratio (1.0-2.1) Urine Color (YELLOW) Urine Clarity (Clear) Urine pH (5.0-8.0) Ur Specific [address] (1.003-1.030) Urine Protein (NEGATIVE) mg/dL Urine Glucose (UA) (Normal) mg/dL Urine Ketones (NEGATIVE) mg/dL Urine Blood (NEGATIVE) Urine Nitrate (NEGATIVE) Urine Bilirubin (NEGATIVE) Urine Urobilinogen (0.2-1.0) mg/dL Ur Leukocyte Esterase (Negative) Julio/uL Urine RBC (Auto) (0-3) /hpf Urine Microscopic WBC (0-5) /hpf Ur Squamous Epith Cells (0-5) /hpf Urine Bacteria (<OCC) Blood Type Blood Type Confirm Antibody Screen BBK History Checked Laboratory Results - last 24 hr 12/14/17 12/14/17 12/14/17 07:08 07:08 07:08 WBC 7.5 RBC 4.30 Hgb 13.3 Hct 39.6 MCV 92.1 MCH 31.0 MCHC 33.6 RDW 13.3 Plt Count 303 MPV 7.7 Neut % (Auto) 59.4 Lymph % (Auto) 30.5 [place] % (Auto) 9.0 Eos % (Auto) 0.5 Baso % (Auto) 0.6 Neut # (Auto) 4.5 Lymph # (Auto) 2.3 [place] # (Auto) 0.7 Eos # (Auto) 0.0 Baso # (Auto) 0.0 PT 9.8 INR 0.9 APTT 27.4 Sodium 141 Potassium 4.4 Chloride 105 Carbon Dioxide 27 Anion Gap 13 BUN 15 Creatinine 0.6 L Est GFR ( Amer) > 60 Est GFR (Non-Af Amer) > 60 Random Glucose 99 Calcium 9.8 Total Bilirubin AST ALT Alkaline Phosphatase Total Protein Albumin Globulin Albumin/Globulin Ratio Urine Color Urine Clarity Urine pH Ur Specific [address] Urine Protein Urine Glucose (UA) Urine Ketones Urine Blood Urine Nitrate Urine Bilirubin Urine Urobilinogen Ur Leukocyte Esterase Urine RBC (Auto) Urine Microscopic WBC Ur Squamous Epith Cells Urine Bacteria Blood Type Blood Type Confirm Antibody Screen BBK History Checked 12/14/17 12/14/17 12/14/17 07:09 08:00 08:10 WBC RBC Hgb Hct MCV MCH MCHC RDW Plt Count MPV Neut % (Auto) Lymph % (Auto) [place] % (Auto) Eos % (Auto) Baso % (Auto) Neut # (Auto) Lymph # (Auto) [place] # (Auto) Eos # (Auto) Baso # (Auto) PT INR APTT Sodium Potassium Chloride Carbon Dioxide Anion Gap BUN Creatinine Est GFR ( Amer) Est GFR (Non-Af Amer) Random Glucose Calcium Total Bilirubin AST ALT Alkaline Phosphatase Total Protein Albumin Globulin Albumin/Globulin Ratio Urine Color Yellow Urine Clarity Slighty-cloudy Urine pH 5.[address] 1.018 Urine Protein Negative Urine Glucose (UA) Neg Urine Ketones Negative Urine Blood Negative Urine Nitrate Negative Urine Bilirubin Negative Urine Urobilinogen 0.2-1.0 Ur Leukocyte Esterase Neg Urine RBC (Auto) 8 H Urine Microscopic WBC 3 Ur Squamous Epith Cells 2 Urine Bacteria Occ H Blood Type O POSITIVE Blood Type Confirm O POSITIVE Antibody Screen Negative BBK History Checked No verified bt 12/14/17 12/15/17 12/15/17 23:45 06:30 06:30 WBC 6.2 RBC 3.98 Hgb 12.6 Hct 36.4 MCV 91.3 MCH 31.5 H MCHC 34.5 RDW 13.1 Plt Count 241 MPV Neut % (Auto) Lymph % (Auto) [place] % (Auto) Eos % (Auto) Baso % (Auto) Neut # (Auto) Lymph # (Auto) [place] # (Auto) Eos # (Auto) Baso # (Auto) PT INR APTT 72.2 H D Sodium 139 Potassium 4.2 Chloride 108 H Carbon Dioxide 26 Anion Gap 9 L BUN 9 Creatinine 0.6 L Est GFR ( Amer) > 60 Est GFR (Non-Af Amer) > 60 Random Glucose 97 Calcium 8.7 Total Bilirubin 0.7 AST 16 ALT 19 Alkaline Phosphatase 47 Total Protein 6.7 Albumin 3.5 Globulin 3.2 Albumin/Globulin Ratio 1.1 Urine Color Urine Clarity Urine pH Ur Specific [address] Urine Protein Urine Glucose (UA) Urine Ketones Urine Blood Urine Nitrate Urine Bilirubin Urine Urobilinogen Ur Leukocyte Esterase Urine RBC (Auto) Urine Microscopic WBC Ur Squamous Epith Cells Urine Bacteria Blood Type Blood Type Confirm Antibody Screen BBK History Checked 12/15/17 06:30 WBC RBC Hgb Hct MCV MCH MCHC RDW Plt Count MPV Neut % (Auto) Lymph % (Auto) [place] % (Auto) Eos % (Auto) Baso % (Auto) Neut # (Auto) Lymph # (Auto) [place] # (Auto) Eos # (Auto) Baso # (Auto) PT INR APTT 70.3 H Sodium Potassium Chloride Carbon Dioxide Anion Gap BUN Creatinine Est GFR ( Amer) Est GFR (Non-Af Amer) Random Glucose Calcium Total Bilirubin AST ALT Alkaline Phosphatase Total Protein Albumin Globulin Albumin/Globulin Ratio Urine Color Urine Clarity Urine pH Ur Specific [address] Urine Protein Urine Glucose (UA) Urine Ketones Urine Blood Urine Nitrate Urine Bilirubin Urine Urobilinogen Ur Leukocyte Esterase Urine RBC (Auto) Urine Microscopic WBC Ur Squamous Epith Cells Urine Bacteria Blood Type Blood Type Confirm Antibody Screen BBK History Checked Critical Care Progress Note - Nutrition Nutrition: Nutrition Category Date Time Status Regular Diet [DIET] Diets 12/14/17 Breakfast Active Assessment/Plan - Assessment and Plan (Free Text) Assessment: IMPRESSION / MAJOR PROBLEMS NOW: 1. 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 On Heparin drip as per Neurology, monitor PTT 2. Neurochecks Q2 3 Repeat brain imaging In AM.
[2017-12-15] MEDS: Oxycodone/Acetaminophen 5/325 mg Tab PO PRN ×2 (10:00→18:19)
--- NOTE | 2017-12-15 10:51 | PN ---
DATE: 12/15/2017 SUBJECTIVE: The patient is seen and examined. Interim events noted. Consults noted and appreciated. Neurology intervention and dissolver operator intervention noted and appreciated. Case was discussed with neurologist yesterday. The patient remains in the intensive care unit. The patient feels okay, improving. No new complaints. No chest pain or shortness of breath or abdominal pain. PHYSICAL EXAMINATION: GENERAL: The patient is in no acute distress. VITAL SIGNS: Stable. HEART: S1, S2, normal and regular. LUNGS: Good bilateral air exchange. ABDOMEN: Soft and nontender. EXTREMITIES: No edema. No calf swelling. No tenderness. No acute ischemia. 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 DIAGNOSTIC DATA: Available diagnostic data reviewed. Telemetry monitoring does not reveal significant arrhythmia. ASSESSMENT AND PLAN: Overall, the patient's general medical condition is hemodynamically stable. The patient remains in heparin drip in the intensive care unit being watched closely. Hypercoagulable status workup is pending. Plan as ordered. Vernon Campbell MD
[2017-12-15] MEDS: Heparin 25,000units in D5W 25,000 UNITS/250 ML BAG IV SCH (19:33)
[2017-12-15 21:20] LABS: SQUAMOUS EPITHIAL 1 /hpf (0-5); URINE BACTERIA RARE (<OCC); URINE BILIRUBIN NEGATIVE (NEGATIVE); URINE BLOOD NEGATIVE (NEGATIVE); URINE CLARITY SLIGHTY-CLOUDY (Clear); URINE COLOR YELLOW (YELLOW); URINE GLUCOSE (UA) NEG (Normal); URINE LEUKOCYTE ESTERASE NEG Leu/uL (Negative); URINE PROTEIN NEGATIVE (NEGATIVE); URINE UROBILINOGEN 0.2-1.0 mg/dL (0.2-1.0)
--- NOTE | 2017-12-16 00:06 | CP.PCM.PN ---
Subjective - Date & Time of Evaluation Date of Evaluation: 10/15/17 Time of Evaluation: 15:30 - Subjective Subjective: MIss dominguez has no headache, no dizziness no worsening of symptoms. Tolerating heparin drip well. on exam: Normal neurological examination. Objective - Vital Signs/Intake and Output Vital Signs (last 24 hours): Temp Pulse Resp BP Pulse Ox 98.3 F 51 L 16 97/50 L 94 L 12/15/17 19:40 12/15/17 22:00 12/15/17 22:00 12/15/17 22:00 12/15/17 22:00 Intake and Output: 12/15/17 12/16/17 18:59 06:59 Intake Total 1790 285 Balance 1790 285 - Medications Medications: Current Medications Oxycodone/Acetaminophen (Percocet 5/325 Mg Tab) 1 tab PO Q4 PRN PRN Reason: Pain, moderate (4-7) Stop: 12/17/17 08:21 Last Admin: 12/15/17 18:19 Dose: 1 tab Oxycodone/Acetaminophen (Percocet 5/325 Mg Tab) 2 tab PO Q6 PRN PRN Reason: Pain, severe (8-10) Stop: 12/17/17 08:22 Last Admin: 12/14/17 14:59 Dose: 2 tab - Labs Labs: 12/15/17 06:30 12/15/17 06:30 PT 9.8 Seconds (9.8-13.1) 12/14/17 07:08 INR 0.9 (0.9-1.2) 12/14/17 07:08 APTT 70.3 Seconds (25.6-37.1) H 12/15/17 06:30 Assessment and Plan - Assessment and Plan (Free Text) Assessment: Patient with sinus thrombosis, who is now undergoing treatment with IV heparin. PLan: 1. COntinue heparin as per protocol. will follow. DR. vuong
[2017-12-16] MEDS: Oxycodone/Acetaminophen 5/325 mg Tab PO PRN ×2 (05:20→22:10)
[2017-12-16] MEDS ORDERED: Heparin 25,000units in D5W 25,000 UNITS/250 ML BAG IV SCH (07:00)
[2017-12-16 07:19] LABS: HEMOGLOBIN 12.5 g/dL (12.0-16.0); MEAN CELL VOLUME 91.7 fl (81.0-99.0); MEAN CORPUSCULAR HEMOGLOBIN 30.8 pg (27.0-31.0); MEAN CORPUSCULAR HGB CONC 33.6 g/dL (33.0-37.0); RBC 4.06 Mil/uL (3.80-5.20)
[2017-12-16 07:25] LABS: ALB/GLOB RATIO 1.1 (1.0-2.1); ALBUMIN 3.5 g/dL (3.5-5.0); ALT/SGPT 14 U/L (9-52); AST/SGOT 26 U/L (14-36); BLOOD UREA NITROGEN 16 mg/dl (7-17); CALCIUM 9.1 mg/dL (8.4-10.2); GFR AFRICAN-AMERICAN > 60; GFR NON-AFRICAN AMERICAN > 60
--- NOTE | 2017-12-16 07:26 | CP.CCUPN ---
CCU Subjective - Physician Review Events Since Last Encounter (Free Text): 12/16/17 07:24 on heparin GGT Asymptomatic No headadche Vitals stable, BP WNL Labs, pending from this AM , excpet PTT which is therapeutic range . CCU Objective - Vital Signs / Intake & Output Vital Signs (Last 4 hours): Vital Signs Temp Pulse Resp BP Pulse Ox 12/16/17 06:00 98.1 F 52 L 16 117/50 L 95 12/16/17 04:00 47 L 18 105/53 L 96 Intake and Output (Last 8hrs): Intake & Output 12/15/17 12/16/17 12/16/17 22:59 06:59 14:59 Intake Total 1015 220 Balance 1015 220 Intake: IV 75 120 Oral 940 100 Other: # Voids Urine, Voided 1 - Physical Exam Narrative Physical Exam (Free Text): 12/16/17 07:25 P/E Neck; No JVD Lungs: no ronchi or crackles Abdomen: soft, non-tender Ext: No edema Neuro: no focal signs Heart: NO gallop. - Medications Active Medications: Active Medications Generic Name Dose Route Start Last Admin Trade Name Freq PRN Reason Stop Dose Admin Heparin Sodium/Dextrose 25,000 units in 250 mls @ 15 mls/hr 12/16/17 07:00 Heparin 25,000 Units/250ml In D5w IV .[id number] REPLACED BY [facility] Protocol Oxycodone/Acetaminophen 1 tab 12/14/17 08:20 12/16/17 05:20 Percocet 5/325 Mg Tab PO 12/17/17 08:21 1 tab Q4 PRN Administration Pain, moderate (4-7) Oxycodone/Acetaminophen 2 tab 12/14/17 08:21 12/14/17 14:59 Percocet 5/325 Mg Tab PO 12/17/17 08:22 2 tab Q6 PRN Administration Pain, severe (8-10) - Patient Studies Lab Studies: Lab Studies 12/15/17 Range/Units 21:10 Urine Color Yellow (YELLOW) Urine Clarity Slighty-cloudy (Clear) Urine pH 6.0 (5.0-8.0) Ur Specific [place] 1.018 (1.003-1.030) Urine Protein Negative (NEGATIVE) mg/dL Urine Glucose (UA) Neg (Normal) mg/dL Urine Ketones Negative (NEGATIVE) mg/dL Urine Blood Negative (NEGATIVE) Urine Nitrate Negative (NEGATIVE) Urine Bilirubin Negative (NEGATIVE) Urine Urobilinogen 0.2-1.0 (0.2-1.0) mg/dL Ur Leukocyte Esterase Neg (Negative) Julio/uL Urine RBC (Auto) 5 H (0-3) /hpf Urine Microscopic WBC 1 (0-5) /hpf Ur Squamous Epith Cells 1 (0-5) /hpf Urine Bacteria Rare (<OCC) Laboratory Results - last 24 hr 12/15/17 21:10 Urine Color Yellow Urine Clarity Slighty-cloudy Urine pH 6.0 Ur Specific [place] 1.018 Urine Protein Negative Urine Glucose (UA) Neg Urine Ketones Negative Urine Blood Negative Urine Nitrate Negative Urine Bilirubin Negative Urine Urobilinogen 0.2-1.0 Ur Leukocyte Esterase Neg Urine RBC (Auto) 5 H Urine Microscopic WBC 1 Ur Squamous Epith Cells 1 Urine Bacteria Rare Critical Care Progress Note - Nutrition Nutrition: Nutrition Category Date Time Status Regular Diet [DIET] Diets 12/14/17 Breakfast Active Assessment/Plan - Assessment and Plan (Free Text) Assessment: IMPRESSION / MAJOR PROBLEMS NOW: 1. 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 On Heparin drip as per Neurology, monitor PTT, CT scan today and then will decide to bridge over to oral AC meds. 2. Neurochecks Q2 3 CT scan will be repeated today D/W neurology.
[2017-12-16] MEDS: Heparin 25,000units in D5W 25,000 UNITS/250 ML BAG IV SCH (08:40)
--- NOTE | 2017-12-16 10:04 | CT ---
PROCEDURE: CT HEAD WITHOUT CONTRAST. HISTORY: follow up sinus thrombosis COMPARISON: Noncontrast head CT 12/14/2017. TECHNIQUE: Axial computed tomography images were obtained through the head/brain without intravenous contrast. Radiation dose: Total exam DLP = 838.71 mGy-cm. This CT exam was performed using one or more of the following dose reduction techniques: Automated exposure control, adjustment of the mA and/or kV according to patient size, and/or use of iterative reconstruction technique. FINDINGS: HEMORRHAGE: No intracranial hemorrhage. BRAIN: No interval parenchymal lucency is appreciated throughout the cerebrum cerebellum or brainstem. There is no mass effect and the extra-axial spaces remain remarkable only for thrombosis of the right transverse sinus and likely the right sigmoid sinus. Artifacts skullbase obscure evaluation of the sigmoid sinus region to a large extent. VENTRICLES: Unremarkable. No hydrocephalus. CALVARIUM: Unremarkable. PARANASAL SINUSES: Unremarkable as visualized. No significant inflammatory changes. MASTOID AIR CELLS: Unremarkable as visualized. No inflammatory changes. OTHER FINDINGS: None. IMPRESSION: Stable appearing right transverse sinus thrombosis. No interval brain parenchymal density changes to suggest infarction. MRI may be helpful for added evaluation the brain parenchyma as soft tissue resolution is higher in MRI. Otherwise, follow-up CT recommended.
[2017-12-17] MEDS: Heparin 25,000units in D5W 25,000 UNITS/250 ML BAG IV SCH (00:58)
[2017-12-17 04:25] LABS: CARDIOLIPIN AB (IGA) <11 APL (<=11); CARDIOLIPIN AB (IGG) <14 GPL (<=14)
[2017-12-17 05:50] LABS: HEMOGLOBIN 12.7 g/dL (12.0-16.0); MEAN CELL VOLUME 91.7 fl (81.0-99.0); MEAN CORPUSCULAR HEMOGLOBIN 31.1 pg (27.0-31.0); RBC 4.08 Mil/uL (3.80-5.20); RED CELL DISTRIBUTION WIDTH 12.6 % (11.5-14.5)
[2017-12-17 06:13] LABS: ALB/GLOB RATIO 1.1 (1.0-2.1); ALBUMIN 3.4 g/dL (3.5-5.0); ALT/SGPT 17 U/L (9-52); AST/SGOT 22 U/L (14-36); BLOOD UREA NITROGEN 18 mg/dl (7-17); GFR AFRICAN-AMERICAN > 60; GFR NON-AFRICAN AMERICAN > 60
--- NOTE | 2017-12-17 09:20 | PN ---
DATE: 12/16/2017 SUBJECTIVE: The patient seen and examined. Interim events noted. Consults noted and appreciated. Tire Service Technician and Neurology followup and intervention noted and appreciated. The patient remains in the intensive care unit on IV heparin for thrombosis. The patient is sleeping, arousable, feels okay. No chest pain. No shortness of breath. The headache is improved. PHYSICAL EXAMINATION: GENERAL: The patient is in no acute distress. VITAL SIGNS: Stable. HEART: S1 and S2, normal and regular. LUNGS: Bilateral air exchange. ABDOMEN: Soft and nontender. EXTREMITIES: No edema. No calf swelling. No tenderness. No acute ischemia. EVENTS INTERN: Exam is essentially unchanged. DIAGNOSTIC DATA: Available diagnostic data reviewed. Telemetry monitoring does not reveal significant arrhythmias. ASSESSMENT AND PLAN: Overall, the patient's general medical condition is stable. Plan as ordered. Vernon Campbell MD
--- NOTE | 2017-12-17 09:25 | CP.PCM.PN ---
Subjective - Date & Time of Evaluation Date of Evaluation: 12/17/17 Time of Evaluation: 09:21 - Subjective Subjective: Ms. Gonzales was seen and examined at the bedside in ICU. She remains alert, oriented, still claims of having right sided headache. She further claims that she was medicated couple hours ago. She denies any dizziness, blurred vision, diplopia, and a possible transfer to [facility] in [place] today. According to the family the accepting physician spoke with the [facility] physician, awaiting for bed availability. Repeat CT scan yesterday showed stable appearing right transverse sinus thrombosis. No interval brain parenchymal density changes to suggest infarction. She remains on IV anticoagulant. There was no untoward events overnight. Objective - Vital Signs/Intake and Output Vital Signs (last 24 hours): Temp Pulse Resp BP Pulse Ox 98.1 F 64 22 123/76 98 12/17/17 07:57 12/17/17 07:57 12/17/17 07:57 12/17/17 07:57 12/17/17 07:57 Intake and Output: 12/17/17 12/17/17 06:59 18:59 Intake Total 666 16 Balance 666 16 - Labs Labs: 12/17/17 04:20 12/17/17 04:20 PT 9.8 Seconds (9.8-13.1) 12/14/17 07:08 INR 0.9 (0.9-1.2) 12/14/17 07:08 APTT 65.8 Seconds (25.6-37.1) H 12/17/17 04:20 - Constitutional Appears: No Acute Distress - Head Exam Head Exam: NORMAL INSPECTION - Neurological Exam Neurological Exam: Alert, Awake, Oriented x3 Neuro motor strength exam: Left Upper Extremity: 5, Right Upper Extremity: 5, Left Lower Extremity: 5, Right Lower Extremity: 5 Additional comments: alert, oriented in all spheres, follows commands Assessment and Plan (1) Dural venous sinus thrombosis Assessment & Plan: Case discussed with Dr. Giraldo, continue current medical regimen until transfer to [facility] including IV anticoagulant. Recommend blood pressure control , normothermic, hydration. Status: Acute
--- NOTE | 2017-12-17 12:33 | PN ---
DATE: 12/17/2017 SUBJECTIVE: The patient is seen and examined. Interim events noted. Consults noted and appreciated. Perinatal Specialist, Hematology, Oncology consult and intervention noted and appreciated. The patient and the patient's family is arranging transfer to service, awaiting bed and accepting physician. The patient still has headache. Denies any chest pain. No shortness of breath. PHYSICAL EXAMINATION: GENERAL: The patient is in no acute distress. VITAL SIGNS: Stable. HEART: S1 and S2, normal and regular. LUNGS: Good bilateral air exchange. ABDOMEN: Soft and nontender. EXTREMITIES: No edema. No calf swelling. No tenderness. No acute ischemia. CENTRAL NERVOUS SYSTEM: Exam is essentially unchanged. DIAGNOSTIC DATA: Available diagnostic data reviewed. Telemetry monitoring does not show any significant arrhythmias. ASSESSMENT AND PLAN: The patient's headaches have controlled with current pain medications. Overall, the patient is clinically stable, remains on heparin drip, awaiting transfer to hospital. Plan as ordered. Vernon Campbell MD
[2017-12-17] MEDS ORDERED: Heparin 25,000units in D5W 25,000 UNITS/250 ML BAG IV SCH (20:00)
[2017-12-17 21:14] LABS: PHOSPHATIDYLSERINE AB IGG <10 U/mL (<10); PHOSPHATIDYLSERINE AB IGM <25 U/mL (<25)
--- NOTE | 2017-12-17 22:46 | PN ---
DATE: 12/17/2017 CRITICAL CARE PROGRESS NOTE LOCATION: The patient in room 421. TIME SPENT: 35 minutes. SUBJECTIVE: The patient is seen and evaluated at the bed side. Past medical, surgical, and social history reviewed. A 27-year-old female, no significant medical history other than for tonsillectomy, admitted on 12/14/2017, complaining of pain, right side of the head from occipital area radiating to temporal area, not associated with nausea or vomiting. No diplopia or photophobia. CT head without contrast showed right-sided dural sinus thrombosis, overnight on IV heparin. PTT in therapeutic range, noted to have persistent headache, normotensive, afebrile. This morning alert and awake, follows commands appropriate, still complaining of pain on the right side of the head. Received medications couple of hours ago for the same. OBJECTIVE: VITAL SIGNS: Temperature 98.1, heart rate 45 to 64 regular, blood pressure 123 to 135 over 76 to 77, respiratory rate 18 to 22 thoracoabdominal, oxygen saturation 95% on room air. Intake 1811, output 200. Positive balance 1611. Weight 187 pounds. HEENT: Examination of head, eyes, ears, nose and throat, pupils are reactive. Conjunctivae pink. Sclerae are white. NECK: Supple. Trachea is central. CHEST: Bilateral breath sounds. Clear to auscultation. HEART: Rhythm regular. S1, S2 normal intensity. No S3, S4, or gallop. No audible murmur. ABDOMEN: Bowel sounds present. Soft. Liver and spleen not palpable. Bladder not distended. EXTREMITIES: No clubbing, cyanosis, or edema. NEUROLOGIC EXAMINATION: No cranial nerve deficit. No sensory motor deficit. Plantar flexor. Deep tendon reflexes 2+ bilaterally. Femoral pulses palpable. CURRENT MEDICATIONS: Include heparin drip to maintain PTT of 1.5 to 2 . LABORATORY DATA: WBC 6, hemoglobin 12.7, hematocrit 37.4, platelet count of 259. PTT 65.8. SMA-7, sodium 141, potassium 4.5, chloride 107, CO2 of 30, blood urea nitrogen 18, creatinine 0.8, random glucose 98, calcium 9. Total bilirubin 0.5, AST 22, ALT 17, alkaline phosphatase 54, total protein 6.5, albumin 3.4. Urinalysis, rbc 5, wbc 1, bacteria rare. Hypercoagulable workup sent, report pending. Microbiology, urine culture no growth, less than 1000 CFU/mL. Head CT repeated on 12/16/2017, stable appearing right transverse sinus thrombosis. No interval brain parenchymal densities, changes to suggest infarction. IMPRESSION: Neurology: Admitted with right-sided headache. CT shows transverse sinus thrombosis. No clear evidence of infection in upper respiratory tract. On systemic anticoagulation as per recommendation from neurology consult. Appreciate neurology followup. Awaiting for transfer to [facility] as soon as bed becomes available. Continue pain medications as needed. Follow hypercoagulable workup. Continue deep venous thrombosis and gastrointestinal prophylaxis. Robert Paul MD
[2017-12-17 23:05] LABS: B2 GLYCOPROTEIN I AB(IGA) <9 SAU (<=20); B2 GLYCOPROTEIN I AB(IGG) <9 SGU (<=20); B2 GLYCOPROTEIN I AB(IGM) <9 SMU (<=20); CARDIOLIPIN AB (IGM) <12 MPL (<=12); PHOSPHATIDYLSERINE AB IGA <20 U/mL (<20)
[2017-12-18 05:35] LABS: HEMOGLOBIN 13.3 g/dL (12.0-16.0); MEAN CELL VOLUME 91.6 fl (81.0-99.0); MEAN CORPUSCULAR HEMOGLOBIN 31.2 pg (27.0-31.0); RBC 4.28 Mil/uL (3.80-5.20); RED CELL DISTRIBUTION WIDTH 12.8 % (11.5-14.5); WHITE BLOOD COUNT 5.5 K/uL (4.8-10.8)
[2017-12-18 05:40] LABS: ALB/GLOB RATIO 1.2 (1.0-2.1); ALBUMIN 3.9 g/dL (3.5-5.0); ALT/SGPT 70 U/L (9-52); AST/SGOT 89 U/L (14-36); BLOOD UREA NITROGEN 17 mg/dl (7-17); CALCIUM 9.5 mg/dL (8.4-10.2); GFR AFRICAN-AMERICAN > 60; GFR NON-AFRICAN AMERICAN > 60
[2017-12-18 06:02] VITALS: TEMP 98
--- NOTE | 2017-12-18 09:18 | CP.PCM.PN ---
Subjective - Date & Time of Evaluation Date of Evaluation: 12/18/17 Time of Evaluation: 09:17 - Subjective Subjective: uncertain for reason for consult pt being treated appropriatly by neurology and it appears pt is being transfered to [facility]. no surgical intervention indicated Objective - Vital Signs/Intake and Output Vital Signs (last 24 hours): Temp Pulse Resp BP Pulse Ox 98 F 74 16 121/72 99 12/18/17 08:00 12/18/17 08:00 12/18/17 08:00 12/18/17 08:00 12/18/17 08:00 Intake and Output: 12/18/17 12/18/17 06:59 18:59 Intake Total 416 32 Balance 416 32 - Medications Medications: Current Medications Acetaminophen (Tylenol 325mg Tab) 650 mg PO Q4 PRN PRN Reason: Headache Famotidine (Pepcid) 20 mg PO BID [facility] Last Admin: 12/18/17 08:33 Dose: 20 mg Heparin Sodium/Dextrose (Heparin 25,000 Units/250ml In D5w) 25,000 units in 250 mls @ 16.5 mls/hr IV .[id number] [facility] PRN Reason: Protocol Last Admin: 12/17/17 21:34 Dose: 16.5 mls/hr - Labs Labs: 12/18/17 04:20 12/18/17 04:20 PT 9.8 Seconds (9.8-13.1) 12/14/17 07:08 INR 0.9 (0.9-1.2) 12/14/17 07:08 APTT 82.7 Seconds (25.6-37.1) H D 12/18/17 04:20
--- NOTE | 2017-12-18 10:29 | CP.CCUPN ---
CCU Subjective - Physician Review Events Since Last Encounter (Free Text): 12/18/17 15:55 The patient was Seen/interviewed and examined by me at the bedside during ICU round, Medical records reviewed and Management issues were discussed and formulated with the house staff. Events reviewed This morning she feels well and is hemodynamically stable, denies any chest pain or SOB No visual changes, vertigo, double vision, dysphagia or trouble with word finding. Less headache now Clinically improving, and neurologically stable Awake, Alert and oriented. Comfortable, NAD Breathing unlabored, on room air O2 sat 100%. Pt AAO x3. Alert, follows commands Denies any chest pain, SOB or Palpitations Afebrile, NSR on the monitor Pt's current status is discussed with pt / pt's family, We reviewed the rationale, risks/benefits, treatment plans and alternatives with the patient and her father at bedside The patient was given the opportunity to ask many questions which were answered to his satisfaction. Since the transfer to [place] is taking time for insurance approvals and bed avilability, she agrees with discharge on oral anticoagulations and she well schedule appointment this week at [facility]. CCU Objective - Vital Signs / Intake & Output Vital Signs (Last 4 hours): Vital Signs Temp Pulse Resp BP Pulse Ox 12/18/17 10:00 63 18 119/76 99 12/18/17 08:00 98 F 74 16 121/72 99 Intake and Output (Last 8hrs): Intake & Output 12/17/17 12/18/17 12/18/17 22:59 06:59 14:59 Intake Total 952 128 664 Balance 952 128 664 Intake: IV 112 128 64 Oral 840 600 Other: # Voids Urine, Voided 1 1 1 - Physical Exam Head: Positive for: Atraumatic, Normocephalic Pupils: Positive for: PERRL. Negative for: Sluggish, Non-Reactive Extroacular Muscles: Positive for: EOMI Conjunctiva: Positive for: Normal. Negative for: Injected, Icteric Pharnyx: Positive for: Normal. Negative for: ERYTHEMA Nose (Internal): Positive for: Normal Inspection, No Active Bleeding Neck: Positive for: Normal Range of Motion, Trachea Midline. Negative for: Meningeal Signs, MIDLINE TENDERNESS, Paraspinal Tenderness, JVD, Lymphadenopathy , Bruit, Other Respiratory/Chest: Positive for: Clear to Auscultation, Good Air Exchange. Negative for: Respiratory Distress, Accessory Muscle Use, Wheezes, Rales, Rhonchi Cardiovascular: Positive for: Regular Rate and Rhythm, Normal S1, S2, Peripheal Pulses Present. Negative for: Tachycardic, Bradycardic Abdomen: Positive for: Normal Bowel Sounds. Negative for: Tenderness, Distention, Peritoneal Signs Upper Extremity: Positive for: Normal Inspection, NORMAL PULSES, Capillary Refill < 2s. Negative for: Cyanosis, Edema, Temperature Abnormalties Lower Extremity: Positive for: Normal Inspection, NORMAL PULSES, Capillary Refill < 2 s. Negative for: Edema Neurological: Positive for: GCS=15, CN II-XII Intact, Speech Normal, Motor Func Grossly Intact, Normal Sensory Function Psychiatric: Positive for: Alert, Oriented x 3 - Medications Active Medications: Active Medications Generic Name Dose Route Start Last Admin Trade Name Freq PRN Reason Stop Dose Admin Acetaminophen 650 mg 12/17/17 22:29 Tylenol 325mg Tab PO Q4 PRN Headache Famotidine 20 mg 12/17/17 17:00 12/18/17 08:33 Pepcid PO 20 mg BID MATT Administration Heparin Sodium/Dextrose 25,000 units in 250 mls @ 16.5 mls/hr 12/17/17 20:00 12/17/17 21:34 Heparin 25,000 Units/250ml In D5w IV 16.5 mls/hr .[id number] MATT Administration Protocol - Patient Studies Lab Studies: Microbiology Studies 12/15/17 21:10 Urine Culture - Final Urine,Clean Catch No Growth (<1,000 CFU/ML) Lab Studies 12/18/17 12/18/17 12/18/17 Range/Units 04:20 04:20 04:20 WBC 5.5 (4.8-10.8) K/uL RBC 4.28 (3.80-5.20) Mil/uL Hgb 13.3 (12.0-16.0) g/dL Hct 39.2 (34.0-47.0) % MCV 91.6 (81.0-99.0) fl MCH 31.2 H (27.0-31.0) pg MCHC 34.0 (33.0-37.0) g/dL RDW 12.8 (11.5-14.5) % Plt Count 269 (130-400) K/uL APTT 82.7 H D (25.6-37.1) Seconds Protein C Activity (70-180) % Antithrombin III Activ (80-120) % activity Sodium 142 (132-148) mmol/l Potassium 4.4 (3.6-5.0) MMOL/L Chloride 105 (98-107) mmol/L Carbon Dioxide 26 (22-30) mmol/L Anion Gap 15 (10-20) BUN 17 (7-17) mg/dl Creatinine 0.9 (0.7-1.2) mg/dl Est GFR ( Amer) > 60 Est GFR (Non-Af Amer) > 60 Random Glucose 104 (65-105) mg/dL Calcium 9.5 (8.4-10.2) mg/dL Total Bilirubin 0.6 (0.2-1.3) mg/dl AST 89 H D (14-36) U/L ALT 70 H D (9-52) U/L Alkaline Phosphatase 54 (38-126) U/L Total Protein 7.1 (6.3-8.2) G/DL Albumin 3.9 (3.5-5.0) g/dL Globulin 3.2 (2.2-3.9) gm/dL Albumin/Globulin Ratio 1.2 (1.0-2.1) Iasv-5-Kctbzadmigtw Ab (<=20) JOSELO Beta-2 GPI IgG Ab (<=20) SGU Beta-2 GPI IgM Ab (<=20) SMU Phosphatidylserine IgG (<10) U/mL Phosphatidylserine IgA (<20) U/mL Phosphatidylserine IgM (<25) U/mL Anti-Phospholipid Intrp Anti-Cardiolipin IgM Ab (<=12) MPL 12/14/17 12/14/17 12/14/17 Range/Units 11:00 11:00 11:00 WBC (4.8-10.8) K/uL RBC (3.80-5.20) Mil/uL Hgb (12.0-16.0) g/dL Hct (34.0-47.0) % MCV (81.0-99.0) fl MCH (27.0-31.0) pg MCHC (33.0-37.0) g/dL RDW (11.5-14.5) % Plt Count (130-400) K/uL APTT (25.6-37.1) Seconds Protein C Activity 105 (70-180) % Antithrombin III Activ 88 (80-120) % activity Sodium (132-148) mmol/l Potassium (3.6-5.0) MMOL/L Chloride (98-107) mmol/L Carbon Dioxide (22-30) mmol/L Anion Gap (10-20) BUN (7-17) mg/dl Creatinine (0.7-1.2) mg/dl Est GFR ( Amer) Est GFR (Non-Af Amer) Random Glucose (65-105) mg/dL Calcium (8.4-10.2) mg/dL Total Bilirubin (0.2-1.3) mg/dl AST (14-36) U/L ALT (9-52) U/L Alkaline Phosphatase (38-126) U/L Total Protein (6.3-8.2) G/DL Albumin (3.5-5.0) g/dL Globulin (2.2-3.9) gm/dL Albumin/Globulin Ratio (1.0-2.1) Zkye-1-Xmsamfunybpp Ab <9 (<=20) OJSELO Beta-2 GPI IgG Ab <9 (<=20) SGU Beta-2 GPI IgM Ab <9 (<=20) SMU Phosphatidylserine IgG <10 (<10) U/mL Phosphatidylserine IgA <20 (<20) U/mL Phosphatidylserine IgM <25 (<25) U/mL Anti-Phospholipid Intrp see note Anti-Cardiolipin IgM Ab <12 (<=12) MPL Laboratory Results - last 24 hr 12/14/17 12/14/17 12/14/17 11:00 11:00 11:00 WBC RBC Hgb Hct MCV MCH MCHC RDW Plt Count APTT Protein C Activity 105 Antithrombin III Activ 88 Sodium Potassium Chloride Carbon Dioxide Anion Gap BUN Creatinine Est GFR ( Amer) Est GFR (Non-Af Amer) Random Glucose Calcium Total Bilirubin AST ALT Alkaline Phosphatase Total Protein Albumin Globulin Albumin/Globulin Ratio [id number]-9-[id number] Ab <9 Beta-2 GPI IgG Ab <9 Beta-2 GPI IgM Ab <9 Phosphatidylserine IgG <10 Phosphatidylserine IgA <20 Phosphatidylserine IgM <25 Anti-Phospholipid Intrp see note Anti-Cardiolipin IgM Ab <12 12/18/17 12/18/17 12/18/17 04:20 04:20 04:20 WBC 5.5 RBC 4.28 Hgb 13.3 Hct 39.2 MCV 91.6 MCH 31.2 H MCHC 34.0 RDW 12.8 Plt Count 269 APTT 82.7 H D Protein C Activity Antithrombin III Activ Sodium 142 Potassium 4.4 Chloride 105 Carbon Dioxide 26 Anion Gap 15 BUN 17 Creatinine 0.9 Est GFR ( Amer) > 60 Est GFR (Non-Af Amer) > 60 Random Glucose 104 Calcium 9.5 Total Bilirubin 0.6 AST 89 H D ALT 70 H D Alkaline Phosphatase 54 Total Protein 7.1 Albumin 3.9 Globulin 3.2 Albumin/Globulin Ratio 1.2 Tlvo-8-Xxuidkrwepkt Ab Beta-2 GPI IgG Ab Beta-2 GPI IgM Ab Phosphatidylserine IgG Phosphatidylserine IgA Phosphatidylserine IgM Anti-Phospholipid Intrp Anti-Cardiolipin IgM Ab Review of Systems - Cardiovascular Cardiovascular: absent: As Per HPI, Acrocyanosis, Chest Pain, Chest Pain at Rest , Chest Pain with Activity, Claudication, Diaphoresis, Dyspnea, Dyspnea on Exertion, Edema, Irregular Heart Rhythm, Pain Radiating to Arm/Neck/Jaw, Leg Edema, Leg Ulcers, Lightheadedness, Orthopnea, Palpitations, Paroxysmal Nocturnal Dyspnea, Pedal Edema, Radiating Pain, Rapid Heart Rate, Slow Heart Rate, Syncope, Other, UNREMARKABLE - Respiratory Respiratory: absent: As Per HPI, Cough, Dyspnea, Hemoptysis, Dyspnea on Exertion , Wheezing, Snoring, Stridor, Pain on Inspiration, Chest Congestion, Excessive Mucous Production, Change in Mucous Color, Pain with Coughing, Other, UNREMARKABLE Critical Care Progress Note - Extremities/Vascular Does the Patient have a Central Venous Catheter?: No Does the Patient need a Central Venous Catheter?: No Does the Patient have a Marquis Catheter?: No Does the Patient need a Marquis Catheter?: No - Nutrition Nutrition: Nutrition Category Date Time Status Regular Diet [DIET] Diets 12/14/17 Breakfast Active Assessment/Plan (1) Cavernous sinus thrombosis Status: Acute (2) Dural venous sinus thrombosis Status: Acute Priority: Low
--- NOTE | 2017-12-18 11:37 | MRI ---
PROCEDURE: MRI BRAIN WITHOUT CONTRAST HISTORY: CVT COMPARISON: Noncontrast head CT 12/16/2017. TECHNIQUE: Multiplanar, multisequence MR images of the brain were obtained without intravenous contrast enhancement. FINDINGS: HEMORRHAGE: None DWI: No evidence of an acute or early subacute infarction. BRAIN PARENCHYMA: Examination is positive only for reiteration of thrombosis of the right transverse sinus and sigmoid sinus as well as a few punctate centrum semiovale and subcortical white matter signal abnormalities primarily the bilateral frontal lobes sparing the remaining brain including the corpus callosum. This is a nonspecific pattern. There is no evidence of unusual infarction which can be seen with sinus thrombosis however these foci are nonspecific with a broad differential diagnosis ranging from migraine headaches to potential demyelination. VENTRICLES: Unremarkable. No hydrocephalus. CRANIUM: Unremarkable. ORBITS: Grossly unremarkable. PARANASAL SINUSES/MASTOIDS: Clear VASCULAR SYSTEM: Skull base flow voids intact. OTHER FINDINGS: None. IMPRESSION: 1. No evidence of acute or subacute brain infarction. 2. Right transverse and sigmoid sinus signal changes compatible with the known history of sinus thrombosis. 3. Minimal white matter changes are nonspecific with broad differential diagnosis as described above. Concordant preliminary report from [facility], 12/17/2017.
[2017-12-18 12:03] VITALS: BP 128/70; PULSE 59; RESP 17; O2SAT 98
--- NOTE | 2017-12-18 13:45 | PN ---
DATE: 12/18/2017 SUBJECTIVE: The patient is seen and examined. Interim events noted. Consults noted and appreciated. Fire Hose Curer and Neurology intervention noted and appreciated. The patient remains in intensive care unit on IV heparin. Still complains of significant headache but did not take Percocet. Tylenol does help and does . The patient is awaiting transfer to . PHYSICAL EXAMINATION: GENERAL: The patient is in no acute distress. VITAL SIGNS: Stable. HEART: S1, S2. Normal and regular. LUNGS: Good bilateral air exchange. ABDOMEN: Soft and nontender. EXTREMITIES: No edema. No calf swelling or tenderness. No acute ischemia. WEBSITE ADMIN: Exam is essentially unchanged. DIAGNOSTIC DATA: Available diagnostic data reviewed. Repeat MRI is done. Report is pending. Telemetry monitoring does not show any significant arrhythmias. ASSESSMENT AND PLAN: Overall, the patient's general medical condition is stable. Plan as ordered. Case and plan discussed with the patient at length. Case and plan also discussed with hi lo driver. Vernon Campbell MD
--- NOTE | 2017-12-18 14:05 | CP.PCM.PN ---
Subjective - Date & Time of Evaluation Date of Evaluation: 12/18/17 Time of Evaluation: 13:00 - Subjective Subjective: Ms. Gonzales was seen and examined today at bedside in the ICU. She continued to complain of headache, but she said that it was much better than before. She only has the headache when she bends down now. We discussed starting Eliquis and following up as an outpatient. She was given the option of starting Lovenox , but chose Eliquis instead despite being informed that it would technically be "off-label" in this case. There are several studies that have demonstrated that Eliquis can be used for CVT. Objective - Vital Signs/Intake and Output Vital Signs (last 24 hours): Temp Pulse Resp BP Pulse Ox 98 F 59 L 17 128/70 98 12/18/17 12:00 12/18/17 12:00 12/18/17 12:00 12/18/17 12:00 12/18/17 12:00 Intake and Output: 12/18/17 12/18/17 06:59 18:59 Intake Total 416 696 Balance 416 696 - Labs Labs: 12/18/17 04:20 12/18/17 04:20 PT 9.8 Seconds (9.8-13.1) 12/14/17 07:08 INR 0.9 (0.9-1.2) 12/14/17 07:08 APTT 82.7 Seconds (25.6-37.1) H D 12/18/17 04:20 - Neurological Exam Neurological Exam: Alert, Awake, CN II-XII Intact, Normal Gait, Oriented x3, Reflexes Normal Neuro motor strength exam: Left Upper Extremity: 5, Right Upper Extremity: 5, Left Lower Extremity: 5, Right Lower Extremity: 5 Assessment and Plan (1) Cavernous sinus thrombosis Assessment & Plan: Will continue Eliquis 5 mg BID and follow up with factor Xa level in one week. I will see the patient in the outpatient neurology office next week as well. We will plan to repeat MRV in one month. She was told to continue adequate hydration with 2-3 liters of water daily. She was also instructed to stop control. Status: Acute
--- NOTE | 2017-12-18 15:41 | CP.PCM.DIS ---
Provider - Provider Date of Admission: 12/14/17 07:04 Attending physician: Vernon Campbell MD Consults: Dr. Giraldo, Dr. Beverly, Dr. Cabrera Time Spent in preparation of Discharge (in minutes): 30 Diagnosis - Discharge Diagnosis (1) Dural venous sinus thrombosis Status: Acute Priority: Low Hospital Course - Lab Results Lab Results: Micro Results 12/15/17 21:10 Urine,Clean Catch Urine Culture - Final No Growth (<1,000 CFU/ML) Most Recent Lab Values WBC 5.5 K/uL (4.8-10.8) 12/18/17 04:20 RBC 4.28 Mil/uL (3.80-5.20) 12/18/17 04:20 Hgb 13.3 g/dL (12.0-16.0) 12/18/17 04:20 Hct 39.2 % (34.0-47.0) 12/18/17 04:20 MCV 91.6 fl (81.0-99.0) 12/18/17 04:20 MCH 31.2 pg (27.0-31.0) H 12/18/17 04:20 MCHC 34.0 g/dL (33.0-37.0) 12/18/17 04:20 RDW 12.8 % (11.5-14.5) 12/18/17 04:20 Plt Count 269 K/uL (130-400) 12/18/17 04:20 MPV 7.7 fl (7.2-11.7) 12/14/17 07:08 Neut % (Auto) 59.4 % (50.0-75.0) 12/14/17 07:08 Lymph % (Auto) 30.5 % (20.0-40.0) 12/14/17 07:08 Motley % (Auto) 9.0 % (0.0-10.0) 12/14/17 07:08 Eos % (Auto) 0.5 % (0.0-4.0) 12/14/17 07:08 Baso % (Auto) 0.6 % (0.0-2.0) 12/14/17 07:08 Neut # (Auto) 4.5 K/uL (1.8-7.0) 12/14/17 07:08 Lymph # (Auto) 2.3 K/uL (1.0-4.3) 12/14/17 07:08 Motley # (Auto) 0.7 K/uL (0.0-0.8) 12/14/17 07:08 Eos # (Auto) 0.0 K/uL (0.0-0.7) 12/14/17 07:08 Baso # (Auto) 0.0 K/uL (0.0-0.2) 12/14/17 07:08 PT 9.8 Seconds (9.8-13.1) 12/14/17 07:08 INR 0.9 (0.9-1.2) 12/14/17 07:08 APTT 82.7 Seconds (25.6-37.1) H D 12/18/17 04:20 Protein C Activity 105 % (70-180) 12/14/17 11:00 Protein S Activity 116 % (60-140) 12/14/17 11:00 Antithrombin III Activ 88 % activity (80-120) 12/14/17 11:00 Factor V see note 12/14/17 11:00 Sodium 142 mmol/l (132-148) 12/18/17 04:20 Potassium 4.4 MMOL/L (3.6-5.0) 12/18/17 04:20 Chloride 105 mmol/L (98-107) 12/18/17 04:20 Carbon Dioxide 26 mmol/L (22-30) 12/18/17 04:20 Anion Gap 15 (10-20) 12/18/17 04:20 BUN 17 mg/dl (7-17) 12/18/17 04:20 Creatinine 0.9 mg/dl (0.7-1.2) 12/18/17 04:20 Est GFR ( Amer) > 60 12/18/17 04:20 Est GFR (Non-Af Amer) > 60 12/18/17 04:20 POC Glucose (mg/dL) 99 mg/dL (65-110) 12/14/17 07:02 Random Glucose 104 mg/dL (65-105) 12/18/17 04:20 Calcium 9.5 mg/dL (8.4-10.2) 12/18/17 04:20 Total Bilirubin 0.6 mg/dl (0.2-1.3) 12/18/17 04:20 AST 89 U/L (14-36) H D 12/18/17 04:20 ALT 70 U/L (9-52) H D 12/18/17 04:20 Alkaline Phosphatase 54 U/L (38-126) 12/18/17 04:20 Total Protein 7.1 G/DL (6.3-8.2) 12/18/17 04:20 Albumin 3.9 g/dL (3.5-5.0) 12/18/17 04:20 Globulin 3.2 gm/dL (2.2-3.9) 12/18/17 04:20 Albumin/Globulin Ratio 1.2 (1.0-2.1) 12/18/17 04:20 Urine Color Yellow (YELLOW) 12/15/17 21:10 Urine Clarity Slighty-cloudy (Clear) 12/15/17 21:10 Urine pH 6.0 (5.0-8.0) 12/15/17 21:10 Ur Specific [place] 1.018 (1.003-1.030) 12/15/17 21:10 Urine Protein Negative mg/dL (NEGATIVE) 12/15/17 21:10 Urine Glucose (UA) Neg mg/dL (Normal) 12/15/17 21:10 Urine Ketones Negative mg/dL (NEGATIVE) 12/15/17 21:10 Urine Blood Negative (NEGATIVE) 12/15/17 21:10 Urine Nitrate Negative (NEGATIVE) 12/15/17 21:10 Urine Bilirubin Negative (NEGATIVE) 12/15/17 21:10 Urine Urobilinogen 0.2-1.0 mg/dL (0.2-1.0) 12/15/17 21:10 Ur Leukocyte Esterase Neg Julio/uL (Negative) 12/15/17 21:10 Urine RBC (Auto) 5 /hpf (0-3) H 12/15/17 21:10 Urine Microscopic WBC 1 /hpf (0-5) 12/15/17 21:10 Ur Squamous Epith Cells 1 /hpf (0-5) 12/15/17 21:10 Urine Bacteria Rare (<OCC) 12/15/17 21:10 [id number] Ab <9 JOSELO (<=20) 12/14/17 11:00 Beta-2 GPI IgG Ab <9 SGU (<=20) 12/14/17 11:00 Beta-2 GPI IgM Ab <9 SMU (<=20) 12/14/17 11:00 Phosphatidylserine IgG <10 U/mL (<10) 12/14/17 11:00 Phosphatidylserine IgA <20 U/mL (<20) 12/14/17 11:00 Phosphatidylserine IgM <25 U/mL (<25) 12/14/17 11:00 Anti-Phospholipid Intrp see note 12/14/17 11:00 Anti-Cardiolipin IgG Ab <14 GPL (<=14) 12/14/17 11:00 Anti-Cardiolipin IgA Ab <11 APL (<=11) 12/14/17 11:00 Anti-Cardiolipin IgM Ab <12 MPL (<=12) 12/14/17 11:00 Prothrombin Mut Interp see note 12/14/17 11:00 Prothrombin Gene Mutate see note 12/14/17 11:00 Prothromb Gene Review see note 12/14/17 11:00 Blood Type O POSITIVE 12/14/17 08:00 Blood Type Confirm O POSITIVE 12/14/17 08:10 Antibody Screen Negative 12/14/17 08:00 BBK History Checked No verified bt 12/14/17 08:00 - Hospital Course Hospital Course: 27 yr old F admitted for right sided dural sinus thrombosis. Patient was seen and evaluated by neurology and neurosurgery. Patient was placed on a heparin drip, monitored along with neuro checks every 2 hours. She tolerated treatment well, headache was controlled and would recurr, patient denied any neurological symptoms. Patient wanted to transfer to [facility] but decided not to as her insurance was taking too long to approve the transfer. In meantime patient was bridged over to oral anticoagulants and discharged stable on Eliquis 5mg PO BID and with instructions to discontinue oral contraceptives, follow up with PMD and neurologist within 1 week. - Date & Time of H&P Date of H&P: 12/14/17 Time of H&P: 07:45 Discharge Exam - Head Exam Head Exam: NORMAL INSPECTION - Eye Exam Eye Exam: Normal appearance - ENT Exam ENT Exam: Mucous Membranes Moist - Respiratory Exam Respiratory Exam: NORMAL BREATHING PATTERN - GI/Abdominal Exam GI & Abdominal Exam: Normal Bowel Sounds, Soft. absent: Tenderness - Extremities Exam Extremities exam: full ROM - Neurological Exam Neurological exam: Alert, CN II-XII Intact (grossly intact), Oriented x3 - Psychiatric Exam Psychiatric exam: Normal Affect, Normal Mood - Skin Skin Exam: Dry, Normal Color, Warm Discharge Plan - Discharge Medications Prescriptions: Apixaban [Eliquis] 5 mg PO BID #60 tab - Follow Up Plan Condition: GUARDED Disposition: HOME/ ROUTINE Instructions: Apixaban, Pulmonary Embolism (DC), Pulmonary Embolism (GEN), Deep Venous Thrombosis (DC), Deep Venous Thrombosis (GEN) Additional Instructions: -Follow up with your primary care doctor within 1 week. -Follow up with the neurologist within 1 week -Take medications as prescribed -Return to the ER if you have any concerns or if you experience visual changes, change in mental status, one sided numbness, tingling, weakness, worst headache of your life, seizure activity Referrals: Doc Giraldo MD [Medical Doctor] - Vernon Campbell MD [Staff Provider] -
== END 2017-12-18 13:54 | disposition home or self-care (01) | DRG 92 ==
LOC: H.ER 03:55 → H.ERHOLD 07:04 → H.TEL 12:43 → H.ICU/CCU 18:05
PROVIDERS: ADMIT Internal Medicine; ATTEND Internal Medicine
DX: G08 Intracranial and intraspinal phlebitis and thrombophlebitis (principal); I82.C11 Acute embolism and thrombosis of right internal jugular vein; G44.209 Tension-type headache, unspecified, not intractable